=== PATIENT | female | born 1945 | race Caucasian/White ===

== ENCOUNTER 2016-12-19 16:14 | Observation (INO) ==
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
[2016-12-19] MEDS ORDERED: LACTATED RINGERS 500 ML IV STA (16:31)
[2016-12-19] MEDS ORDERED: ONDANSETRON 4 MG/2 ML VIAL IV STA (16:31)
[2016-12-19] MEDS ORDERED: HYDROmorphone 2 MG/1 ML VIAL IV STA (16:31)
[2016-12-19] MEDS ORDERED: LORazepam 2 MG/1 ML VIAL ONE (16:37)
[2016-12-19] MEDS ORDERED: HYDROmorphone 2 MG/1 ML VIAL ONE (16:48)
[2016-12-19] MEDS ORDERED: ONDANSETRON 4 MG/2 ML VIAL ONE (16:48)
[2016-12-19 16:51] LABS: Basophils % 0.4 % (0.0-0.8); Eosinophils # 0.3 10*3/uL (0.0-0.87); Eosinophils % 5.8 % (0.00-10.9); Hematocrit 37.2 VOL% (35.7-47.0); Hemoglobin 12.2 GM/DL (12.0-16.0); Immature Granulocytes % 0.8 %; Immature Granulocytes Absolute 0.04 #; Lymphocytes # 1.6 10*3/uL (1.4-4.0); Lymphocytes % 32.7 % (21.3-54.2); Mean Corpuscular HGB Conc 32.8 GM/DL (32-36); Mean Corpuscular Hemoglobin 33 PG (27-34); Mean Corpuscular Volume 99.2 FL (87-102); Mean Platelet Volume 9.1 FL (9.6-12.0); Monocytes # 0.3 10*3/uL (0.11-0.8); Monocytes % 6.2 % (1.7-12.7); Neutrophils # 2.7 10*3/uL (1.4-7.4); Neutrophils % 54.1 % (38.7-73.9); Platelet Count 131 T/CUMM (130-400); Red Blood Count 3.75 MC/CUMM (3.8-5.5); Red Cell Distribution Width 13.7 % (9.3-17.3)
[2016-12-19 17:01] LABS: PT Patient Result 10.9 SECS; Partial Thromboplastin Time 27.6 SECS (0-40)
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
[2016-12-19 17:11] LABS: Apearance,Urine CLOUDY (Clear); Bacteria,Urine Occasional /HPF (Few); Bilirubin,Urine Negative (Negative); Blood, Urine Negative (Negative); Glucose,Urine (UA) Negative (Negative); Hyaline Casts,Urine 4 /LPF (0-3); Ketones,Urine 5 mg/dL (Negative); Mucus,Urine Occasional /LPF (Occasional); Nitrite,Urine Negative (Negative); Protein,Urine 30 MG/DL; RBC,Urine 4 /HPF (0-4); Squamous Epithelial Cell,Urine Occasional /HPF (0-10); Urine Color Yellow (Yellow); Urine Specific Gravity 1.016 (1.001-1.035); Urine Urobilinogen < 2.0 EU/DL (0.2-1.0); WBC,Urine 1 /HPF (0-6)
[2016-12-19 17:17] LABS: Barbiturates Screen,Urine Negative (Negative); Benzodiazepines Screen,Urine Positive (Negative); Cannabinoid Screen,Urine Negative (Negative); Opiate Screen,Urine Negative (Negative); Phencyclidine Screen,Urine Negative (Negative)
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
[2016-12-19 18:00] LABS: Alanine Aminotransferase 22 U/L (13-56); Albumin 4.3 G/DL (3.4-5.0); Alkaline Phosphatase 84 U/L (45-117); Amylase 40 U/L (25-115); Aspartate Amino Transferase 28 U/L (0-37); Blood Urea Nitrogen 12 MG/DL (7-18); Calcium 8.5 MG/DL (8.5-10.1); Glucose 154 MG/DL (74-106); Osmolality,Calculated 290.7 MOS/KG (273-304); Potassium 3.6 MMOL/L (3.5-5.1); Sodium 145 MMOL/L (136-145)
[2016-12-19] MEDS ORDERED: oxyCODONE/ACETAMINOPHEN 5-325 MG TABLET PO PRN (18:07)
[2016-12-19] MEDS ORDERED: ONDANSETRON 4 MG/2 ML VIAL IV PRN (18:07)
[2016-12-19] MEDS ORDERED: BISACODYL 5 MG TABLET PO PRN (18:07)
[2016-12-19] MEDS ORDERED: ACETAMINOPHEN 325 MG TABLET PO PRN (18:07)
[2016-12-19 18:32] LABS: Troponin I Only < 0.015 NG/ML (0.00-0.045)
[2016-12-19] MEDS: HYDROmorphone 2 MG/1 ML VIAL IV PRN (21:02)
[2016-12-20] MEDS: HYDROmorphone 2 MG/1 ML VIAL IV PRN (01:44)
[2016-12-20 04:49] LABS: Troponin I Only < 0.015 NG/ML (0.00-0.045)
--- NOTE | 2016-12-20 05:59 | EKG Report ---
Stationary ECG Study 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
[2016-12-20] MEDS ORDERED: PANTOPRAZOLE 40 MG TABLET PO SCH (09:00)
--- NOTE | 2016-12-20 09:51 | EKG Report ---
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
[2016-12-20 10:44] LABS: Troponin I Only < 0.015 NG/ML (0.00-0.045)
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
[2016-12-20 15:57] VITALS: BP 106/56
== END 2016-12-20 18:00 | disposition home or self-care (01) ==
LOC: EDBD → EDUNIT# → N.ED 16:14 → N.EDINP 16:14 → N.5E 20:25
PROVIDERS: ADMIT Surgery; ATTEND Surgery

== ENCOUNTER 2019-03-23 16:58 | Observation (INO) ==
[2019-03-23 18:20] LABS: Apearance,Urine Slightly Hazy (Clear); Bilirubin,Urine Negative (Negative); Blood, Urine Negative (Negative); Glucose,Urine (UA) Negative (Negative); Hyaline Casts,Urine 1 /LPF (0-3); Ketones,Urine Negative (Negative); Mucus,Urine Occasional /LPF (Occasional); Nitrite,Urine Negative (Negative); Protein,Urine Negative; RBC,Urine 1 /HPF (0-4); Squamous Epithelial Cell,Urine Occasional /HPF (0-10); Urine Color Yellow (Yellow); Urine Specific Gravity 1.006 (1.001-1.035); Urine Urobilinogen < 2.0 EU/DL (0.2-1.0); WBC,Urine 1 /HPF (0-6)
[2019-03-23 18:23] LABS: Basophils % 0.6 % (0.0-0.8); Eosinophils # 0.3 10*3/uL (0.0-0.87); Eosinophils % 6.2 % (0.00-10.9); Hematocrit 34.2 VOL% (35.7-47.0); Immature Granulocytes % 0.4 %; Immature Granulocytes Absolute 0.02 #; Lymphocytes # 1.2 10*3/uL (1.4-4.0); Lymphocytes % 22.9 % (21.3-54.2); Mean Corpuscular HGB Conc 32.2 GM/DL (32-36); Mean Corpuscular Volume 104.6 FL (87-102); Mean Platelet Volume 9.4 FL (9.6-12.0); Monocytes % 6.2 % (1.7-12.7); Neutrophils % 63.7 % (38.7-73.9); Platelet Count 138 T/CUMM (130-400); Red Blood Count 3.27 MC/CUMM (3.8-5.5); Red Cell Distribution Width 12.7 % (9.3-17.3); White Blood Count 5.2 T/CUMM (4-12)
[2019-03-23 18:26] LABS: Barbiturates Screen,Urine Negative (Negative); Benzodiazepines Screen,Urine Positive (Negative); Cannabinoid Screen,Urine Negative (Negative); Opiate Screen,Urine Negative (Negative); Phencyclidine Screen,Urine Negative (Negative)
[2019-03-23 18:30] LABS: Acetaminophen < 2.0 UG/ML (10-30); Alanine Aminotransferase 18 U/L (13-56); Albumin 3.8 G/DL (3.4-5.0); Alkaline Phosphatase 71 U/L (45-117); Aspartate Amino Transferase 27 U/L (0-37); Bilirubin,Total < 0.39 MG/DL (0.2-1.0); Blood Urea Nitrogen 15 MG/DL (7-18); Calcium 8.3 MG/DL (8.5-10.1); Glucose 126 MG/DL (74-106); Osmolality,Calculated 281.4 MOS/KG (273-304); Salicylate < 2.8 MG/DL (2.8-20); Total Protein 6.4 G/DL (6.4-8.3)
[2019-03-23] MEDS ORDERED: ONDANSETRON 4 MG/2 ML VIAL IV PRN (19:57)
[2019-03-24] MEDS: DEXTROSE 5% NACL 0.9% 1,000 ML IV SCH ×4 (00:30→20:33)
[2019-03-24] MEDS: valACYclovir 500 MG TABLET PO SCH ×4 (06:08→20:28)
[2019-03-24] MEDS: POTASSIUM CHLORIDE RIDER 10 MEQ in PREMIX 1 EACH IV PRN ×3 (06:24→10:50)
[2019-03-24] MEDS: PANTOPRAZOLE 40 MG VIAL IV SCH (09:14)
[2019-03-24] MEDS: METOPROLOL SUCCINATE XL 100 MG TABLET PO SCH (09:15)
[2019-03-24] MEDS: CITALOPRAM 20 MG TABLET PO SCH ×2 (09:15→20:27)
[2019-03-24] MEDS ORDERED: TRIAMCINOLONE 0.1% CREAM 15 GM TUBE TOP SCH (15:00)
[2019-03-24] MEDS: TRIAMCINOLONE 0.1% CREAM 15 GM TUBE TOP SCH ×2 (16:28→20:37)
[2019-03-25 05:54] LABS: Basophils % 0.4 % (0.0-0.8); Eosinophils # 0.2 10*3/uL (0.0-0.87); Immature Granulocytes % 0.4 %; Immature Granulocytes Absolute 0.01 #; Lymphocytes # 1.1 10*3/uL (1.4-4.0); Mean Corpuscular Volume 107.8 FL (87-102); Mean Platelet Volume 9.2 FL (9.6-12.0); Monocytes % 7.4 % (1.7-12.7); Neutrophils % 44.8 % (38.7-73.9); Platelet Count 94 T/CUMM (130-400); Red Blood Count 2.69 MC/CUMM (3.8-5.5); Red Cell Distribution Width 13.1 % (9.3-17.3); White Blood Count 2.7 T/CUMM (4-12)
[2019-03-25 06:19] LABS: Calcium 7.5 MG/DL (8.5-10.1); Osmolality,Calculated 284.8 MOS/KG (273-304)
[2019-03-25 06:37] LABS: Platelet Estimate Decreased
[2019-03-25 06:38] LABS: Anisocytosis 1+
[2019-03-25] MEDS: TRIAMCINOLONE 0.1% CREAM 15 GM TUBE TOP SCH ×2 (09:13→20:57)
[2019-03-25] MEDS: DEXTROSE 5% NACL 0.9% 1,000 ML IV SCH ×3 (09:14→22:22)
[2019-03-25] MEDS: valACYclovir 500 MG TABLET PO SCH ×3 (09:14→20:55)
[2019-03-25] MEDS: METOPROLOL SUCCINATE XL 100 MG TABLET PO SCH (09:14)
[2019-03-25] MEDS: CITALOPRAM 20 MG TABLET PO SCH ×2 (09:14→20:55)
[2019-03-25] MEDS: PANTOPRAZOLE 40 MG VIAL IV SCH (09:14)
[2019-03-25] MEDS ORDERED: ACETAMINOPHEN 500 MG TABLET PO PRN (20:37)
[2019-03-25] MEDS ORDERED: IMATINIB PO SCH (21:00)
[2019-03-26 05:32] LABS: Basophils % 0.4 % (0.0-0.8); Eosinophils # 0.2 10*3/uL (0.0-0.87); Eosinophils % 8.5 % (0.00-10.9); Hematocrit 29.7 VOL% (35.7-47.0); Hemoglobin 9.4 GM/DL (12.0-16.0); Lymphocytes % 40.2 % (21.3-54.2); Mean Corpuscular HGB Conc 31.6 GM/DL (32-36); Mean Corpuscular Volume 105.7 FL (87-102); Mean Platelet Volume 8.7 FL (9.6-12.0); Monocytes % 8.1 % (1.7-12.7); Neutrophils % 42.8 % (38.7-73.9); Platelet Count 98 T/CUMM (130-400); Red Blood Count 2.81 MC/CUMM (3.8-5.5); Red Cell Distribution Width 12.7 % (9.3-17.3); White Blood Count 2.5 T/CUMM (4-12)
[2019-03-26 06:04] LABS: Bilirubin,Total 0.9 MG/DL (0.2-1.0); Calcium 8.3 MG/DL (8.5-10.1); Osmolality,Calculated 281.1 MOS/KG (273-304); Total Protein 5.2 G/DL (6.4-8.3)
[2019-03-26 06:17] LABS: Eosinophils 10 % (0-10); Lymphocytes 41 % (20-55); Segmented Neutrophils 45 % (50-85); Total Cells Counted 100
[2019-03-26 06:18] LABS: Anisocytosis Slight
[2019-03-26 06:19] LABS: Macrocytosis Slight; Platelet Estimate Decreased
[2019-03-26] MEDS: valACYclovir 500 MG TABLET PO SCH ×3 (08:22→20:36)
[2019-03-26] MEDS: METOPROLOL SUCCINATE XL 100 MG TABLET PO SCH (08:22)
[2019-03-26] MEDS: TRIAMCINOLONE 0.1% CREAM 15 GM TUBE TOP SCH ×2 (08:22→20:37)
[2019-03-26] MEDS: PANTOPRAZOLE 40 MG VIAL IV SCH (08:22)
[2019-03-26] MEDS: CITALOPRAM 20 MG TABLET PO SCH ×2 (08:22→20:36)
[2019-03-27] MEDS: CITALOPRAM 20 MG TABLET PO SCH (09:13)
[2019-03-27] MEDS: valACYclovir 500 MG TABLET PO SCH ×2 (09:14→14:42)
[2019-03-27] MEDS: METOPROLOL SUCCINATE XL 100 MG TABLET PO SCH (09:14)
[2019-03-27] MEDS: PANTOPRAZOLE 40 MG VIAL IV SCH (09:14)
[2019-03-27] MEDS: TRIAMCINOLONE 0.1% CREAM 15 GM TUBE TOP SCH (09:14)
[2019-03-27 16:46] VITALS: BP 174/86
== END 2019-03-27 16:54 ==
LOC: EDUNIT# → N.ED 16:58 → N.EDINP 16:58 → N.TELES 20:35 → N.TELEN 03-24 07:20
PROVIDERS: ADMIT Internal Medicine; ATTEND Internal Medicine